=== PATIENT | male | born 1950 | race Caucasian/White ===

== ENCOUNTER 2020-06-26 01:18 | Inpatient (IN) ==
[2020-06-26] MEDS ORDERED: Acetaminophen 325 MG TABLET PO PRN ×2 (14:44→18:53)
[2020-06-26] MEDS ORDERED: Ondansetron 4 MG/2 ML VIAL IVP PRN ×2 (14:44→18:53)
[2020-06-26] MEDS ORDERED: Naloxone 0.4 MG/ML INJ IVP PRN ×2 (14:44→18:53)
[2020-06-26] MEDS ORDERED: *HR* HYDROcodone/Acet 5/325 mg TABLET PO PRN ×2 (14:44→18:53)
[2020-06-26] MEDS ORDERED: *HR* OxyCODONE Immed Rel 5 MG TABLET PO PRN ×2 (14:44→18:53)
[2020-06-26] MEDS ORDERED: Ringers Solution, Lactated 1,000 ML IVC SCH ×2 (14:45→15:15)
[2020-06-26] MEDS ORDERED: cefTRIAXone 1,000 MG in 0.9 % Sodium Chloride Mini Bag 100 ML IVPB SCH (15:00)
[2020-06-26] MEDS ORDERED: Ondansetron 4 MG/2 ML VIAL ONE (16:47)
[2020-06-26] MEDS ORDERED: Dexamethasone 4 MG/ML VIAL ONE (16:47)
[2020-06-26] MEDS ORDERED: Lidocaine -MPF 2% 2 ML VIAL ONE (16:47)
[2020-06-26] MEDS ORDERED: *HR* Propofol 200 MG/20 ML VIAL IVP ONE (16:48)
[2020-06-26] MEDS ORDERED: *HR* FentaNYL (PF) 100 MCG/2 ML VIAL ONE (16:48)
[2020-06-26] MEDS ORDERED: Isovue-300 50ML VIAL ONE (16:52)
[2020-06-26] MEDS ORDERED: Insulin LISPRO 300 UNITS/3 ML VIAL SQ SCH (17:00)
[2020-06-26] MEDS ORDERED: Albumin Human 5% 12.5 GM/250 ML IV.SOLN ONE (17:01)
[2020-06-26] MEDS ORDERED: Perflutren Lipid Microsphere 1.3 ML in 0.9 % Sodium Chloride 8.7 ML IVP PRN ×2 (17:27→18:53)
[2020-06-26] MEDS ORDERED: *HR* PHENYLEPHRINE 1,000 MCG/10 ML SYRINGE IVP ONE (17:29)
[2020-06-26] MEDS ORDERED: carvediloL 25 MG TABLET PO SCH (17:30)
[2020-06-26] MEDS ORDERED: *HR* Labetalol 20 MG/4 ML SYRINGE IVP PRN (18:21)
[2020-06-26] MEDS ORDERED: *HR* HYDROmorphone PF 0.5 MG/0.5 ML SYRINGE IVP PRN (18:21)
[2020-06-26] MEDS ORDERED: Apixaban 5 MG TABLET PO SCH (21:00)
[2020-06-26] MEDS ORDERED: hydrALAZINE 25 MG TABLET PO SCH (21:00)
[2020-06-26] MEDS: Apixaban 5 MG TABLET PO SCH (21:23)
[2020-06-26] MEDS: hydrALAZINE 25 MG TABLET PO SCH (21:23)
[2020-06-27 04:52] LABS: Basophils % 0.2 %
[2020-06-27 04:53] LABS: Hematocrit 28.8 % (37.5-50.1); Hemoglobin 7.9 g/dL (12.9-16.9); Immature Granulocytes % 0.9 % (0-4); Lymphocytes # 0.5 K/mcL (0.6-4.6); Lymphocytes % 5.6 %; Mean Corpuscular HGB Conc 27.4 g/dL (31.6-35.5); Mean Corpuscular Hemoglobin 21.3 pg (28.0-33.3); Mean Corpuscular Volume 77.6 fL (83.0-100.0); Mean Platelet Volume 11.4 fL (9.4-12.4); Monocytes # 0.5 K/mcL (0.0-1.3); Monocytes % 4.8 %; Platelet Count 335 K/mcL (140-400); Red Blood Count 3.71 M/mcL (4.19-5.50); Red Cell Distribution Width 15.6 % (11.5-14.5); Segmented Neutrophils % 88.5 %; White Blood Count 9.3 K/mcL (4.3-11.1)
[2020-06-27 05:09] LABS: Neutrophils # 8.2 K/mcL (1.6-8.9)
[2020-06-27 05:18] LABS: Calcium 8.7 mg/dL (8.6-10.3); Magnesium 2.6 mg/dL (1.6-2.6); Phosphorous 5.5 mg/dL (2.7-4.5); Potassium 5.7 mEq/L (3.5-5.1)
[2020-06-27 05:24] LABS: Thyroid Stimulating Hormone 0.868 mcIU/mL (0.340-5.600)
[2020-06-27 05:34] LABS: Vitamin B12 627 pg/mL (250-1100)
[2020-06-27 05:35] LABS: Folate > 22.3 ng/mL (3.0-16.0)
[2020-06-27 06:03] LABS: Hypochromasia Present (Not Present); Platelet Estimate Normal (Normal)
[2020-06-27 06:04] LABS: Ovalocytes 1+ (Not Present)
[2020-06-27] MEDS: Levothyroxine 25 MCG TABLET PO SCH (06:12)
[2020-06-27] MEDS ORDERED: Levothyroxine 25 MCG TABLET PO SCH (06:30)
[2020-06-27 06:45] LABS: Estimated Average Glucose 169 mg/dl; Hemoglobin A1C 7.5 %
[2020-06-27] MEDS: cefTRIAXone 1,000 MG in 0.9 % Sodium Chloride Mini Bag 100 ML IVPB SCH (07:57)
[2020-06-27] MEDS: Multivit/Ca/Min/Fe/FA 1 TAB TABLET PO SCH (07:58)
[2020-06-27] MEDS: carvediloL 25 MG TABLET PO SCH ×2 (07:58→17:40)
[2020-06-27] MEDS: DilTIAZem CD (24hr) 240 MG CAP.ER.24H PO SCH (07:58)
[2020-06-27] MEDS: hydrALAZINE 25 MG TABLET PO SCH ×3 (07:58→21:52)
[2020-06-27] MEDS: Cholecalciferol (D-3) 1,000 UNIT (25MCG) TABLET PO SCH (07:59)
[2020-06-27] MEDS: Apixaban 5 MG TABLET PO SCH ×2 (07:59→21:52)
[2020-06-27] MEDS ORDERED: Insulin LISPRO 300 UNITS/3 ML VIAL SQ SCH (08:00)
[2020-06-27] MEDS ORDERED: Furosemide 20 MG TABLET PO SCH (09:00)
[2020-06-27] MEDS ORDERED: DilTIAZem CD (24hr) 240 MG CAP.ER.24H PO SCH (09:00)
[2020-06-27] MEDS ORDERED: Ferrous Sulfate Oral Soln 300 MG/5 ML UDC PO SCH ×2 (09:00)
[2020-06-27] MEDS ORDERED: Cholecalciferol (D-3) 1,000 UNIT (25MCG) TABLET PO SCH (09:00)
[2020-06-27] MEDS ORDERED: Multivit/Ca/Min/Fe/FA 1 TAB TABLET PO SCH (09:00)
[2020-06-27] MEDS ORDERED: Insulin Human Regular 10 UNIT in 0.9 % Sodium Chloride 10 ML IV ONE (09:57)
[2020-06-27] MEDS: Sennosides/Docusate Sodium TABLET PO SCH ×2 (11:03→21:52)
[2020-06-27] MEDS: Insulin DETEMIR 100 UNIT/ML X5UNITS SQ SCH (11:03)
[2020-06-27] MEDS: Insulin LISPRO 300 UNITS/3 ML VIAL SQ SCH ×3 (12:29→21:51)
[2020-06-27 20:02] LABS: Sodium, Urine 38.9 mEq/L
[2020-06-28 01:40] LABS: Basophils % 0.4 %; Red Cell Distribution Width 15.5 % (11.5-14.5)
[2020-06-28 01:41] LABS: Eosinophils # 0.1 K/mcL (0.0-0.6); Eosinophils % 1.1 %; Hematocrit 26.6 % (37.5-50.1); Hemoglobin 7.5 g/dL (12.9-16.9); Immature Granulocytes % 0.4 % (0-4); Lymphocytes # 1.1 K/mcL (0.6-4.6); Lymphocytes % 9.7 %; Mean Corpuscular HGB Conc 28.2 g/dL (31.6-35.5); Mean Corpuscular Hemoglobin 21.6 pg (28.0-33.3); Mean Corpuscular Volume 76.4 fL (83.0-100.0); Mean Platelet Volume 11.2 fL (9.4-12.4); Monocytes % 8.3 %; Neutrophils # 9.1 K/mcL (1.6-8.9); Platelet Count 331 K/mcL (140-400); Red Blood Count 3.48 M/mcL (4.19-5.50); Segmented Neutrophils % 80.1 %; White Blood Count 11.4 K/mcL (4.3-11.1)
[2020-06-28 01:54] LABS: Basophils # 0.1 K/mcL (0.0-0.2)
[2020-06-28 01:59] LABS: Calcium 8.9 mg/dL (8.6-10.3); Magnesium 2.7 mg/dL (1.6-2.6); Phosphorous 5.1 mg/dL (2.7-4.5); Potassium 4.9 mEq/L (3.5-5.1)
[2020-06-28 02:32] LABS: Hypochromasia Present (Not Present); Platelet Estimate Normal (Normal); Poikilocytosis 1+ (Not Present)
[2020-06-28] MEDS: polyethylene glycoL 3350 17 GM POWD.PACK PO PRN (04:38)
[2020-06-28] MEDS: Levothyroxine 25 MCG TABLET PO SCH (06:00)
[2020-06-28] MEDS: Insulin LISPRO 300 UNITS/3 ML VIAL SQ SCH ×4 (07:54→19:41)
[2020-06-28] MEDS ORDERED: Iron Sucrose Complex 400 MG in 0.9 % Sodium Chloride 250 ML IVPB ONE (08:52)
[2020-06-28] MEDS: hydrALAZINE 25 MG TABLET PO SCH ×3 (09:34→19:40)
[2020-06-28] MEDS: Apixaban 5 MG TABLET PO SCH (09:34)
[2020-06-28] MEDS: DilTIAZem CD (24hr) 240 MG CAP.ER.24H PO SCH (09:34)
[2020-06-28] MEDS: Multivit/Ca/Min/Fe/FA 1 TAB TABLET PO SCH (09:34)
[2020-06-28] MEDS: Sennosides/Docusate Sodium TABLET PO SCH ×2 (09:35→19:40)
[2020-06-28] MEDS: carvediloL 25 MG TABLET PO SCH ×2 (09:35→16:29)
[2020-06-28] MEDS: Cholecalciferol (D-3) 1,000 UNIT (25MCG) TABLET PO SCH (09:35)
[2020-06-28] MEDS: cefTRIAXone 1,000 MG in 0.9 % Sodium Chloride Mini Bag 100 ML IVPB SCH (09:38)
[2020-06-28] MEDS: Insulin DETEMIR 100 UNIT/ML X5UNITS SQ SCH (10:36)
[2020-06-29] MEDS: Levothyroxine 25 MCG TABLET PO SCH (05:30)
[2020-06-29 06:03] LABS: Basophils # 0.1 K/mcL (0.0-0.2); Basophils % 0.6 %; Eosinophils # 0.2 K/mcL (0.0-0.6); Eosinophils % 2.5 %; Hematocrit 25.6 % (37.5-50.1); Hemoglobin 7.5 g/dL (12.9-16.9); Immature Granulocytes % 0.8 % (0-4); Lymphocytes # 1.2 K/mcL (0.6-4.6); Lymphocytes % 12.6 %; Mean Corpuscular HGB Conc 29.3 g/dL (31.6-35.5); Mean Corpuscular Hemoglobin 22.3 pg (28.0-33.3); Mean Corpuscular Volume 76.2 fL (83.0-100.0); Mean Platelet Volume 10.8 fL (9.4-12.4); Monocytes # 0.9 K/mcL (0.0-1.3); Neutrophils # 7.2 K/mcL (1.6-8.9); Platelet Count 332 K/mcL (140-400); Red Blood Count 3.36 M/mcL (4.19-5.50); Red Cell Distribution Width 15.4 % (11.5-14.5); Segmented Neutrophils % 74.5 %; White Blood Count 9.7 K/mcL (4.3-11.1)
[2020-06-29 06:23] LABS: Calcium 8.8 mg/dL (8.6-10.3); Magnesium 2.5 mg/dL (1.6-2.6); Potassium 4.6 mEq/L (3.5-5.1)
[2020-06-29] MEDS: polyethylene glycoL 3350 17 GM POWD.PACK PO PRN (08:19)
[2020-06-29] MEDS: Insulin LISPRO 300 UNITS/3 ML VIAL SQ SCH ×4 (08:19→20:59)
[2020-06-29] MEDS: cefTRIAXone 1,000 MG in 0.9 % Sodium Chloride Mini Bag 100 ML IVPB SCH (08:20)
[2020-06-29] MEDS: DilTIAZem CD (24hr) 240 MG CAP.ER.24H PO SCH (08:21)
[2020-06-29] MEDS: carvediloL 25 MG TABLET PO SCH ×2 (08:21→17:04)
[2020-06-29] MEDS: hydrALAZINE 25 MG TABLET PO SCH ×3 (08:22→20:58)
[2020-06-29] MEDS: Sennosides/Docusate Sodium TABLET PO SCH ×2 (08:22→20:59)
[2020-06-29] MEDS: Multivit/Ca/Min/Fe/FA 1 TAB TABLET PO SCH (08:22)
[2020-06-29] MEDS: Cholecalciferol (D-3) 1,000 UNIT (25MCG) TABLET PO SCH (08:22)
[2020-06-29] MEDS: Insulin DETEMIR 100 UNIT/ML X5UNITS SQ SCH (08:35)
[2020-06-29] MEDS ORDERED: Iron Sucrose Complex 400 MG in 0.9 % Sodium Chloride 250 ML IVPB ONE (12:36)
[2020-06-30 04:21] LABS: Hematocrit 26.4 % (37.5-50.1); Hemoglobin 7.7 g/dL (12.9-16.9); Mean Corpuscular HGB Conc 29.2 g/dL (31.6-35.5); Mean Corpuscular Hemoglobin 22.2 pg (28.0-33.3); Mean Corpuscular Volume 76.1 fL (83.0-100.0); Mean Platelet Volume 10.9 fL (9.4-12.4); Platelet Count 338 K/mcL (140-400); Red Blood Count 3.47 M/mcL (4.19-5.50); Red Cell Distribution Width 15.7 % (11.5-14.5); White Blood Count 9.2 K/mcL (4.3-11.1)
[2020-06-30 04:33] LABS: Calcium 8.9 mg/dL (8.6-10.3); Potassium 4.2 mEq/L (3.5-5.1)
[2020-06-30] MEDS: Levothyroxine 25 MCG TABLET PO SCH (05:34)
[2020-06-30] MEDS: Insulin DETEMIR 100 UNIT/ML X5UNITS SQ SCH (08:14)
[2020-06-30] MEDS: Insulin LISPRO 300 UNITS/3 ML VIAL SQ SCH ×2 (08:14→11:55)
[2020-06-30] MEDS: Cholecalciferol (D-3) 1,000 UNIT (25MCG) TABLET PO SCH (08:15)
[2020-06-30] MEDS: hydrALAZINE 25 MG TABLET PO SCH (08:15)
[2020-06-30] MEDS: DilTIAZem CD (24hr) 240 MG CAP.ER.24H PO SCH (08:15)
[2020-06-30] MEDS: Multivit/Ca/Min/Fe/FA 1 TAB TABLET PO SCH (08:15)
[2020-06-30] MEDS: Sennosides/Docusate Sodium TABLET PO SCH (08:15)
[2020-06-30] MEDS: carvediloL 25 MG TABLET PO SCH (08:15)
[2020-06-30 11:45] VITALS: BP 133/78
[2020-07-02 11:36] LABS: Calculi Mass 10 mg
== END 2020-06-30 13:39 | disposition home or self-care (01) | DRG 659 ==
LOC: 3BNU → SUATTDRO 12:46 → 2ANU 06-28 22:50
PROVIDERS: ADMIT Family Medicine; ATTEND Internal Medicine

== ENCOUNTER 2022-06-15 16:17 | Inpatient (IN) ==
[2022-06-15 18:24] LABS: Basophils # 0.1 K/mcL (0.0-0.2); Basophils % 0.6 %; Eosinophils # 0.5 K/mcL (0.0-0.6); Eosinophils % 3.9 %; Hematocrit 36.6 % (37.5-50.1); Hemoglobin 11.4 g/dL (12.9-16.9); Immature Granulocytes % 0.4 % (0-4); Lymphocytes # 1.3 K/mcL (0.6-4.6); Lymphocytes % 10.7 %; Mean Corpuscular HGB Conc 31.1 g/dL (31.6-35.5); Mean Corpuscular Hemoglobin 27.9 pg (28.0-33.3); Mean Corpuscular Volume 89.7 fL (83.0-100.0); Mean Platelet Volume 10.6 fL (9.4-12.4); Monocytes # 0.7 K/mcL (0.0-1.3); Monocytes % 5.8 %; Neutrophils # 9.8 K/mcL (1.6-8.9); Platelet Count 280 K/mcL (140-400); Red Blood Count 4.08 M/mcL (4.19-5.50); Red Cell Distribution Width 14.5 % (11.5-14.5); Segmented Neutrophils % 78.6 %; White Blood Count 12.4 K/mcL (4.3-11.1)
[2022-06-15 18:46] LABS: Calcium 9.3 mg/dL (8.6-10.3); Potassium 3.6 mEq/L (3.5-5.1)
[2022-06-15 18:47] LABS: Troponin I 0.03 ng/mL (< 0.04)
[2022-06-16] MEDS ORDERED: carvediloL 25 MG TABLET PO ONE (00:45)
[2022-06-16] MEDS ORDERED: hydrALAZINE 25 MG TABLET PO ONE (00:45)
[2022-06-16] MEDS ORDERED: Furosemide 40 MG/4 ML VIAL IVP ONE (01:03)
[2022-06-16] MEDS ORDERED: Melatonin 3 MG TABLET PO PRN (01:53)
[2022-06-16] MEDS ORDERED: Dextrose Gel 15 GM/37.5 ML TUBE PO PRN ×2 (01:53)
[2022-06-16] MEDS ORDERED: D5% in Water 1,000 ML IVC PRN (01:53)
[2022-06-16] MEDS ORDERED: Ondansetron ODT 4 MG TAB.RAPDIS SL PRN (01:53)
[2022-06-16] MEDS ORDERED: *HR* Dextrose 50 % in Water (Syg) 50 ML SYRINGE IVP PRN (01:53)
[2022-06-16] MEDS ORDERED: Naloxone 0.4 MG/ML INJ IVP PRN (01:53)
[2022-06-16 03:07] LABS: Bacteria,Urine Few per hpf (None-Few); Bilirubin,Urine Negative (Negative); Blood,Urine Small (Negative); Clarity,Urine Clear (Clear); Color,Urine Light-Yellow (Yellow); Glucose,Urine (UA) 100 mg/dL (Normal); Ketones,Urine Negative (Negative); Leukocyte Esterase,Urine Negative (Negative); Nitrite,Urine Negative (Negative); PH,Urine 6.5 pH Units (5.0-8.0); Protein,Urine >=300 mg/dL (Neg-Trace); Specific Gravity,Urine 1.011 (1.010-1.025); Squamous Epithelial Cell,Urine Few per hpf (None-Few); Urobilinogen,Urine Normal (Normal); WBC,Urine 0-3 per hpf (0-3)
[2022-06-16 03:15] LABS: Sodium, Urine 107.3 mEq/L
[2022-06-16 06:00] LABS: Basophils # 0.1 K/mcL (0.0-0.2); Basophils % 0.4 %; Eosinophils # 0.4 K/mcL (0.0-0.6); Eosinophils % 3.2 %; Hematocrit 35.1 % (37.5-50.1); Hemoglobin 11.1 g/dL (12.9-16.9); Immature Granulocytes % 0.4 % (0-4); Lymphocytes # 1.2 K/mcL (0.6-4.6); Lymphocytes % 8.9 %; Mean Corpuscular HGB Conc 31.6 g/dL (31.6-35.5); Mean Corpuscular Hemoglobin 27.9 pg (28.0-33.3); Mean Corpuscular Volume 88.2 fL (83.0-100.0); Mean Platelet Volume 10.7 fL (9.4-12.4); Monocytes # 0.8 K/mcL (0.0-1.3); Monocytes % 6.1 %; Neutrophils # 10.9 K/mcL (1.6-8.9); Platelet Count 267 K/mcL (140-400); Red Blood Count 3.98 M/mcL (4.19-5.50); Red Cell Distribution Width 14.5 % (11.5-14.5); White Blood Count 13.4 K/mcL (4.3-11.1)
[2022-06-16 06:23] LABS: Calcium 9.3 mg/dL (8.6-10.3); Chol/HDL Ratio 2.8 (0-4.9); Magnesium 1.8 mg/dL (1.6-2.6); Potassium 3.4 mEq/L (3.5-5.1)
[2022-06-16] MEDS ORDERED: Potassium Chloride Elixir 20 MEQ/15 ML UDC PO ONE (06:27)
[2022-06-16] MEDS ORDERED: carvediloL 25 MG TABLET PO SCH (08:00)
[2022-06-16] MEDS ORDERED: hydrALAZINE 25 MG TABLET PO SCH (09:00)
[2022-06-16] MEDS: hydrALAZINE 25 MG TABLET PO SCH ×3 (09:28→20:48)
[2022-06-16] MEDS: carvediloL 25 MG TABLET PO SCH ×2 (09:29→18:00)
[2022-06-16] MEDS: DilTIAZem CD (24hr) 240 MG CAP.ER.24H PO SCH (09:29)
[2022-06-16] MEDS: Apixaban 5 MG TABLET PO SCH ×2 (09:29→20:48)
[2022-06-16] MEDS: Insulin LISPRO 300 UNITS/3 ML VIAL SUBQ SCH ×4 (09:31→20:50)
[2022-06-16] MEDS: Insulin DETEMIR 100 UNIT/ML X5UNITS SUBQ SCH ×2 (09:31→20:48)
[2022-06-16 09:33] LABS: Phosphorous 3.9 mg/dL (2.7-4.5)
[2022-06-16 09:46] LABS: Thyroid Stimulating Hormone 3.175 mcIU/mL (0.340-5.600)
[2022-06-16 10:13] LABS: Folate > 22.3 ng/mL (3.0-16.0); Vitamin B12 1125 pg/mL (250-1100); Vitamin D 25 Hydroxy 25 ng/mL (30-80)
[2022-06-16 10:58] LABS: Estimated Average Glucose 183 mg/dl
[2022-06-16] MEDS ORDERED: GuaiFENesin Liq 200 MG/10 ML UDC PO PRN (14:46)
[2022-06-16] MEDS ORDERED: Furosemide 40 MG/4 ML VIAL IVP SCH (15:00)
[2022-06-16] MEDS ORDERED: polyethylene glycoL 3350 17 GM POWD.PACK PO PRN (15:06)
[2022-06-16 15:12] LABS: Hepatitis B Surface Antigen Nonreactive (Nonreactive)
[2022-06-16 15:42] LABS: Hepatitis C Virus Antibody Nonreactive (Nonreactive)
[2022-06-16 15:45] LABS: Hepatitis B Core IgM Nonreactive (Nonreactive)
[2022-06-16 15:48] LABS: Hepatitis A Antibody IgM Nonreactive (Nonreactive)
[2022-06-16 18:44] LABS: Creatinine,Urine 134 mg/dL; Microalbumin,Urine > 1350 mg/L; Protein/Creatinine Ratio,Urine 6.44 mg/mg (0.00-0.20)
[2022-06-16] MEDS: Furosemide 40 MG TABLET PO SCH (20:48)
[2022-06-16] MEDS: Sennosides/Docusate Sodium TABLET PO SCH (20:48)
[2022-06-16] MEDS ORDERED: Apixaban 5 MG TABLET PO SCH (21:00)
[2022-06-17 02:27] LABS: Hematocrit 34.4 % (37.5-50.1); Hemoglobin 10.8 g/dL (12.9-16.9); Mean Corpuscular HGB Conc 31.4 g/dL (31.6-35.5); Mean Corpuscular Hemoglobin 27.8 pg (28.0-33.3); Mean Corpuscular Volume 88.7 fL (83.0-100.0); Mean Platelet Volume 10.6 fL (9.4-12.4); Platelet Count 251 K/mcL (140-400); Red Blood Count 3.88 M/mcL (4.19-5.50); Red Cell Distribution Width 14.6 % (11.5-14.5); White Blood Count 10.6 K/mcL (4.3-11.1)
[2022-06-17 02:43] LABS: Calcium 8.9 mg/dL (8.6-10.3); Potassium 3.7 mEq/L (3.5-5.1)
[2022-06-17] MEDS: Levothyroxine 25 MCG TABLET PO SCH (06:27)
[2022-06-17] MEDS: Cholecalciferol (D-3) 1,000 UNIT (25MCG) TABLET PO SCH (07:56)
[2022-06-17] MEDS: Apixaban 5 MG TABLET PO SCH ×2 (07:56→19:28)
[2022-06-17] MEDS: allopurinoL 100 MG TABLET PO SCH (07:56)
[2022-06-17] MEDS: carvediloL 25 MG TABLET PO SCH ×2 (07:56→15:49)
[2022-06-17] MEDS: DilTIAZem CD (24hr) 240 MG CAP.ER.24H PO SCH (07:56)
[2022-06-17] MEDS: Furosemide 40 MG TABLET PO SCH ×2 (07:56→19:28)
[2022-06-17] MEDS: hydrALAZINE 25 MG TABLET PO SCH ×3 (07:56→19:27)
[2022-06-17] MEDS: Sennosides/Docusate Sodium TABLET PO SCH ×2 (07:56→19:28)
[2022-06-17] MEDS: Insulin DETEMIR 100 UNIT/ML X5UNITS SUBQ SCH ×2 (08:00→19:27)
[2022-06-17] MEDS: Insulin LISPRO 300 UNITS/3 ML VIAL SUBQ SCH ×4 (11:04→19:39)
[2022-06-18 03:34] LABS: Hemoglobin 10.1 g/dL (12.9-16.9); Mean Corpuscular HGB Conc 31.6 g/dL (31.6-35.5); Mean Corpuscular Volume 88.6 fL (83.0-100.0); Mean Platelet Volume 11.1 fL (9.4-12.4); Platelet Count 256 K/mcL (140-400); Red Blood Count 3.61 M/mcL (4.19-5.50); Red Cell Distribution Width 14.5 % (11.5-14.5); White Blood Count 10.5 K/mcL (4.3-11.1)
[2022-06-18 04:09] LABS: Calcium 8.5 mg/dL (8.6-10.3); Potassium 3.5 mEq/L (3.5-5.1)
[2022-06-18] MEDS: Levothyroxine 25 MCG TABLET PO SCH (05:58)
[2022-06-18] MEDS: Insulin LISPRO 300 UNITS/3 ML VIAL SUBQ SCH ×4 (08:24→20:31)
[2022-06-18] MEDS: Apixaban 5 MG TABLET PO SCH ×2 (09:44→20:30)
[2022-06-18] MEDS: allopurinoL 100 MG TABLET PO SCH (09:44)
[2022-06-18] MEDS: hydrALAZINE 25 MG TABLET PO SCH ×3 (09:44→20:30)
[2022-06-18] MEDS: DilTIAZem CD (24hr) 240 MG CAP.ER.24H PO SCH (09:44)
[2022-06-18] MEDS: Sennosides/Docusate Sodium TABLET PO SCH ×2 (09:44→20:31)
[2022-06-18] MEDS: carvediloL 25 MG TABLET PO SCH ×2 (09:44→16:25)
[2022-06-18] MEDS: Furosemide 40 MG TABLET PO SCH ×2 (09:44→20:31)
[2022-06-18] MEDS: Cholecalciferol (D-3) 1,000 UNIT (25MCG) TABLET PO SCH (09:44)
[2022-06-18] MEDS: Insulin DETEMIR 100 UNIT/ML X5UNITS SUBQ SCH ×2 (09:47→20:31)
[2022-06-19 05:07] LABS: Basophils # 0.1 K/mcL (0.0-0.2); Basophils % 0.6 %; Eosinophils # 0.3 K/mcL (0.0-0.6); Eosinophils % 2.3 %; Hematocrit 31.1 % (37.5-50.1); Hemoglobin 9.9 g/dL (12.9-16.9); Immature Granulocytes % 0.4 % (0-4); Lymphocytes # 1.7 K/mcL (0.6-4.6); Lymphocytes % 15.6 %; Mean Corpuscular HGB Conc 31.8 g/dL (31.6-35.5); Mean Corpuscular Hemoglobin 28.4 pg (28.0-33.3); Mean Corpuscular Volume 89.1 fL (83.0-100.0); Mean Platelet Volume 10.7 fL (9.4-12.4); Monocytes % 8.9 %; Neutrophils # 7.8 K/mcL (1.6-8.9); Platelet Count 235 K/mcL (140-400); Red Blood Count 3.49 M/mcL (4.19-5.50); Red Cell Distribution Width 14.6 % (11.5-14.5); Segmented Neutrophils % 72.2 %; White Blood Count 10.8 K/mcL (4.3-11.1)
[2022-06-19 05:33] LABS: Calcium 8.6 mg/dL (8.6-10.3); Phosphorous 5.5 mg/dL (2.7-4.5); Potassium 3.5 mEq/L (3.5-5.1)
[2022-06-19] MEDS: Levothyroxine 25 MCG TABLET PO SCH (06:13)
[2022-06-19] MEDS: Insulin LISPRO 300 UNITS/3 ML VIAL SUBQ SCH ×4 (07:36→20:43)
[2022-06-19] MEDS: Furosemide 40 MG TABLET PO SCH ×2 (08:44→20:36)
[2022-06-19] MEDS: carvediloL 25 MG TABLET PO SCH ×2 (08:44→15:17)
[2022-06-19] MEDS: allopurinoL 100 MG TABLET PO SCH (08:44)
[2022-06-19] MEDS: Sennosides/Docusate Sodium TABLET PO SCH ×2 (08:44→20:37)
[2022-06-19] MEDS: hydrALAZINE 25 MG TABLET PO SCH ×3 (08:44→20:36)
[2022-06-19] MEDS: Cholecalciferol (D-3) 1,000 UNIT (25MCG) TABLET PO SCH (08:44)
[2022-06-19] MEDS: Apixaban 5 MG TABLET PO SCH ×2 (08:45→20:37)
[2022-06-19] MEDS: DilTIAZem CD (24hr) 240 MG CAP.ER.24H PO SCH (08:45)
[2022-06-19] MEDS: Insulin DETEMIR 100 UNIT/ML X5UNITS SUBQ SCH ×2 (09:31→20:42)
[2022-06-19] MEDS ORDERED: Benzonatate 100 MG CAPSULE PO PRN (15:03)
[2022-06-20] MEDS: Levothyroxine 25 MCG TABLET PO SCH (05:46)
[2022-06-20] MEDS: Insulin LISPRO 300 UNITS/3 ML VIAL SUBQ SCH ×4 (07:49→20:54)
[2022-06-20] MEDS: hydrALAZINE 25 MG TABLET PO SCH ×3 (07:56→21:07)
[2022-06-20] MEDS: Furosemide 40 MG TABLET PO SCH ×2 (07:57→20:54)
[2022-06-20] MEDS: Cholecalciferol (D-3) 1,000 UNIT (25MCG) TABLET PO SCH (07:57)
[2022-06-20] MEDS: allopurinoL 100 MG TABLET PO SCH (07:57)
[2022-06-20] MEDS: Apixaban 5 MG TABLET PO SCH (07:57)
[2022-06-20] MEDS: Sennosides/Docusate Sodium TABLET PO SCH ×2 (07:57→20:54)
[2022-06-20] MEDS: DilTIAZem CD (24hr) 240 MG CAP.ER.24H PO SCH (07:57)
[2022-06-20] MEDS: carvediloL 25 MG TABLET PO SCH ×2 (07:57→17:40)
[2022-06-20] MEDS: Insulin DETEMIR 100 UNIT/ML X5UNITS SUBQ SCH ×2 (08:06→20:54)
[2022-06-20 10:34] LABS: Calcium 8.6 mg/dL (8.6-10.3); Magnesium 1.9 mg/dL (1.6-2.6); Phosphorous 5.6 mg/dL (2.7-4.5); Potassium 3.4 mEq/L (3.5-5.1)
[2022-06-20] MEDS ORDERED: Heparin 1,000 UNITS/500 mL 500 ML ONE (13:56)
[2022-06-20] MEDS ORDERED: *HR* Heparin 5,000 UNIT/ML VIAL ONE (14:19)
[2022-06-21] MEDS: Levothyroxine 25 MCG TABLET PO SCH (05:58)
[2022-06-21 07:45] LABS: Basophils % 0.4 %; Eosinophils # 0.2 K/mcL (0.0-0.6); Eosinophils % 2.1 %; Hematocrit 31.7 % (37.5-50.1); Immature Granulocytes % 0.3 % (0-4); Lymphocytes # 1.4 K/mcL (0.6-4.6); Mean Corpuscular HGB Conc 31.5 g/dL (31.6-35.5); Mean Corpuscular Hemoglobin 28.1 pg (28.0-33.3); Mean Platelet Volume 11.2 fL (9.4-12.4); Monocytes # 0.8 K/mcL (0.0-1.3); Monocytes % 8.6 %; Neutrophils # 6.8 K/mcL (1.6-8.9); Platelet Count 223 K/mcL (140-400); Red Blood Count 3.56 M/mcL (4.19-5.50); Red Cell Distribution Width 14.8 % (11.5-14.5); Segmented Neutrophils % 73.6 %; White Blood Count 9.3 K/mcL (4.3-11.1)
[2022-06-21 08:08] LABS: Calcium 8.8 mg/dL (8.6-10.3); Potassium 3.3 mEq/L (3.5-5.1)
[2022-06-21] MEDS: Insulin LISPRO 300 UNITS/3 ML VIAL SUBQ SCH ×4 (08:20→20:01)
[2022-06-21] MEDS ORDERED: 0.9 % Sodium Chloride 250 ML IVC PRN (08:31)
[2022-06-21] MEDS ORDERED: *HR* Heparin 10,000 UNIT/10 ML VIAL IV PRN ×2 (08:37)
[2022-06-21] MEDS: hydrALAZINE 25 MG TABLET PO SCH ×3 (08:43→20:34)
[2022-06-21] MEDS: carvediloL 25 MG TABLET PO SCH ×2 (08:43→16:05)
[2022-06-21] MEDS: Sennosides/Docusate Sodium TABLET PO SCH ×2 (08:43→20:35)
[2022-06-21] MEDS: Furosemide 40 MG TABLET PO SCH ×2 (08:43→20:35)
[2022-06-21] MEDS: Cholecalciferol (D-3) 1,000 UNIT (25MCG) TABLET PO SCH (08:44)
[2022-06-21] MEDS: allopurinoL 100 MG TABLET PO SCH (08:44)
[2022-06-21] MEDS: DilTIAZem CD (24hr) 240 MG CAP.ER.24H PO SCH (08:44)
[2022-06-21] MEDS ORDERED: 0.9 % Sodium Chloride 2,000 ML PRIME SCH (08:45)
[2022-06-21] MEDS: Insulin DETEMIR 100 UNIT/ML X5UNITS SUBQ SCH ×2 (08:46→20:35)
[2022-06-21] MEDS: *HR* Heparin 5,000 UNIT/ML VIAL SQ SCH (16:35)
[2022-06-22] MEDS: *HR* Heparin 5,000 UNIT/ML VIAL SQ SCH ×2 (05:23→17:10)
[2022-06-22] MEDS: Levothyroxine 25 MCG TABLET PO SCH (05:24)
[2022-06-22] MEDS: Insulin LISPRO 300 UNITS/3 ML VIAL SUBQ SCH ×4 (08:32→21:21)
[2022-06-22] MEDS: carvediloL 25 MG TABLET PO SCH ×2 (08:33→17:10)
[2022-06-22] MEDS: allopurinoL 100 MG TABLET PO SCH (08:33)
[2022-06-22] MEDS: Sennosides/Docusate Sodium TABLET PO SCH ×2 (08:34→21:22)
[2022-06-22] MEDS: hydrALAZINE 25 MG TABLET PO SCH ×3 (08:34→21:22)
[2022-06-22] MEDS: DilTIAZem CD (24hr) 240 MG CAP.ER.24H PO SCH (08:34)
[2022-06-22] MEDS: Cholecalciferol (D-3) 1,000 UNIT (25MCG) TABLET PO SCH (08:34)
[2022-06-22] MEDS: Furosemide 40 MG TABLET PO SCH ×2 (08:34→21:22)
[2022-06-22] MEDS ORDERED: *HR* Heparin 10,000 UNIT/10 ML VIAL IV PRN (08:51)
[2022-06-22] MEDS ORDERED: 0.9 % Sodium Chloride 250 ML IVC PRN (08:51)
[2022-06-22] MEDS: Insulin DETEMIR 100 UNIT/ML X5UNITS SUBQ SCH ×2 (08:58→21:22)
[2022-06-23 05:11] LABS: Basophils # 0.1 K/mcL (0.0-0.2); Basophils % 0.9 %; Eosinophils # 0.2 K/mcL (0.0-0.6); Eosinophils % 2.4 %; Hematocrit 35.2 % (37.5-50.1); Hemoglobin 10.9 g/dL (12.9-16.9); Immature Granulocytes % 0.4 % (0-4); Lymphocytes # 1.8 K/mcL (0.6-4.6); Mean Corpuscular Hemoglobin 27.9 pg (28.0-33.3); Mean Platelet Volume 11.2 fL (9.4-12.4); Monocytes # 1.1 K/mcL (0.0-1.3); Monocytes % 11.2 %; Neutrophils # 6.4 K/mcL (1.6-8.9); Platelet Count 206 K/mcL (140-400); Red Blood Count 3.91 M/mcL (4.19-5.50); Red Cell Distribution Width 14.6 % (11.5-14.5); Segmented Neutrophils % 66.1 %; White Blood Count 9.7 K/mcL (4.3-11.1)
[2022-06-23 05:30] LABS: Calcium 8.8 mg/dL (8.6-10.3); Magnesium 1.9 mg/dL (1.6-2.6); Phosphorous 4.1 mg/dL (2.7-4.5); Potassium 3.5 mEq/L (3.5-5.1)
[2022-06-23] MEDS: *HR* Heparin 5,000 UNIT/ML VIAL SQ SCH ×2 (05:45→18:12)
[2022-06-23] MEDS: Levothyroxine 25 MCG TABLET PO SCH (05:45)
[2022-06-23] MEDS ORDERED: 0.9 % Sodium Chloride 250 ML IVC PRN (07:50)
[2022-06-23] MEDS ORDERED: *HR* Heparin 10,000 UNIT/10 ML VIAL IV PRN (07:50)
[2022-06-23] MEDS: Cholecalciferol (D-3) 1,000 UNIT (25MCG) TABLET PO SCH (08:17)
[2022-06-23] MEDS: Furosemide 40 MG TABLET PO SCH ×2 (08:17→22:00)
[2022-06-23] MEDS: allopurinoL 100 MG TABLET PO SCH (08:17)
[2022-06-23] MEDS: DilTIAZem CD (24hr) 240 MG CAP.ER.24H PO SCH (08:17)
[2022-06-23] MEDS: Sennosides/Docusate Sodium TABLET PO SCH ×2 (08:17→22:00)
[2022-06-23] MEDS: Insulin LISPRO 300 UNITS/3 ML VIAL SUBQ SCH ×4 (08:24→22:08)
[2022-06-23] MEDS: carvediloL 25 MG TABLET PO SCH ×2 (09:05→16:19)
[2022-06-23] MEDS: hydrALAZINE 25 MG TABLET PO SCH ×3 (09:05→22:06)
[2022-06-23] MEDS: Insulin DETEMIR 100 UNIT/ML X5UNITS SUBQ SCH ×2 (09:06→22:09)
[2022-06-24 03:56] LABS: Potassium 3.3 mEq/L (3.5-5.1)
[2022-06-24] MEDS: *HR* Heparin 5,000 UNIT/ML VIAL SQ SCH ×2 (05:10→17:39)
[2022-06-24] MEDS: Levothyroxine 25 MCG TABLET PO SCH (05:11)
[2022-06-24] MEDS: Insulin LISPRO 300 UNITS/3 ML VIAL SUBQ SCH ×4 (09:37→21:12)
[2022-06-24] MEDS: Cholecalciferol (D-3) 1,000 UNIT (25MCG) TABLET PO SCH (09:38)
[2022-06-24] MEDS: DilTIAZem CD (24hr) 240 MG CAP.ER.24H PO SCH (09:38)
[2022-06-24] MEDS: allopurinoL 100 MG TABLET PO SCH (09:38)
[2022-06-24] MEDS: carvediloL 25 MG TABLET PO SCH ×2 (09:38→17:39)
[2022-06-24] MEDS: Furosemide 40 MG TABLET PO SCH ×2 (09:38→21:19)
[2022-06-24] MEDS: hydrALAZINE 25 MG TABLET PO SCH ×3 (09:38→21:19)
[2022-06-24] MEDS: Sennosides/Docusate Sodium TABLET PO SCH ×2 (09:39→21:19)
[2022-06-24] MEDS: Insulin DETEMIR 100 UNIT/ML X5UNITS SUBQ SCH ×2 (09:40→21:18)
[2022-06-24 15:43] LABS: Urine Collection Volume NOT PROVIDED mL
[2022-06-25 02:00] LABS: Mean Corpuscular HGB Conc 31.4 g/dL (31.6-35.5); Mean Corpuscular Hemoglobin 27.6 pg (28.0-33.3); Mean Corpuscular Volume 87.9 fL (83.0-100.0); Mean Platelet Volume 11.8 fL (9.4-12.4); Platelet Count 186 K/mcL (140-400); Red Blood Count 3.98 M/mcL (4.19-5.50); Red Cell Distribution Width 14.4 % (11.5-14.5); White Blood Count 11.7 K/mcL (4.3-11.1)
[2022-06-25 02:20] LABS: Magnesium 1.8 mg/dL (1.6-2.6); Phosphorous 4.5 mg/dL (2.7-4.5)
[2022-06-25 02:21] LABS: Calcium 9.1 mg/dL (8.6-10.3); Potassium 3.4 mEq/L (3.5-5.1)
[2022-06-25] MEDS: Levothyroxine 25 MCG TABLET PO SCH (05:34)
[2022-06-25] MEDS: *HR* Heparin 5,000 UNIT/ML VIAL SQ SCH ×2 (05:35→18:28)
[2022-06-25] MEDS ORDERED: 0.9 % Sodium Chloride 250 ML IVC PRN (06:56)
[2022-06-25] MEDS ORDERED: 0.9 % Sodium Chloride 2,000 ML PRIME SCH (07:00)
[2022-06-25] MEDS: Insulin LISPRO 300 UNITS/3 ML VIAL SUBQ SCH ×4 (08:42→20:37)
[2022-06-25] MEDS: Cholecalciferol (D-3) 1,000 UNIT (25MCG) TABLET PO SCH (15:09)
[2022-06-25] MEDS: hydrALAZINE 25 MG TABLET PO SCH ×3 (15:09→20:23)
[2022-06-25] MEDS: DilTIAZem CD (24hr) 240 MG CAP.ER.24H PO SCH (15:09)
[2022-06-25] MEDS: allopurinoL 100 MG TABLET PO SCH (15:09)
[2022-06-25] MEDS: carvediloL 25 MG TABLET PO SCH ×2 (15:10→17:35)
[2022-06-25] MEDS: Furosemide 40 MG TABLET PO SCH ×2 (15:10→20:23)
[2022-06-25] MEDS: Sennosides/Docusate Sodium TABLET PO SCH ×2 (15:10→20:22)
[2022-06-25] MEDS: Insulin DETEMIR 100 UNIT/ML X5UNITS SUBQ SCH ×2 (15:21→20:37)
[2022-06-25] MEDS: Acetaminophen 325 MG TABLET PO PRN (18:31)
[2022-06-26] MEDS: Levothyroxine 25 MCG TABLET PO SCH (06:05)
[2022-06-26] MEDS: *HR* Heparin 5,000 UNIT/ML VIAL SQ SCH (06:05)
[2022-06-26] MEDS: Insulin LISPRO 300 UNITS/3 ML VIAL SUBQ SCH ×4 (09:00→22:07)
[2022-06-26] MEDS: allopurinoL 100 MG TABLET PO SCH (09:06)
[2022-06-26] MEDS: Furosemide 40 MG TABLET PO SCH ×2 (09:06→22:08)
[2022-06-26] MEDS: hydrALAZINE 25 MG TABLET PO SCH ×3 (09:06→22:07)
[2022-06-26] MEDS: DilTIAZem CD (24hr) 240 MG CAP.ER.24H PO SCH (09:06)
[2022-06-26] MEDS: Cholecalciferol (D-3) 1,000 UNIT (25MCG) TABLET PO SCH (09:06)
[2022-06-26] MEDS: carvediloL 25 MG TABLET PO SCH ×2 (09:06→16:53)
[2022-06-26] MEDS: Sennosides/Docusate Sodium TABLET PO SCH ×2 (09:07→22:08)
[2022-06-26] MEDS: Insulin DETEMIR 100 UNIT/ML X5UNITS SUBQ SCH ×2 (09:09→22:58)
[2022-06-26 12:04] LABS: Calcium 9.3 mg/dL (8.6-10.3); Potassium 3.7 mEq/L (3.5-5.1)
[2022-06-26] MEDS ORDERED: *HR* Heparin 5,000 UNIT/ML VIAL IVP PRN ×2 (14:13)
[2022-06-26 16:45] LABS: Heparin anti-factor XA UFH < 0.04 IU/mL (0.30-0.70); INR 1.1; Prothrombin Time 12.5 Seconds (9.4-12.1)
[2022-06-26 16:47] LABS: Hematocrit 35.3 % (37.5-50.1); Hemoglobin 10.9 g/dL (12.9-16.9); Mean Corpuscular HGB Conc 30.9 g/dL (31.6-35.5); Mean Corpuscular Hemoglobin 27.7 pg (28.0-33.3); Mean Corpuscular Volume 89.8 fL (83.0-100.0); Platelet Count 162 K/mcL (140-400); Red Blood Count 3.93 M/mcL (4.19-5.50); Red Cell Distribution Width 14.4 % (11.5-14.5); White Blood Count 11.3 K/mcL (4.3-11.1)
[2022-06-26] MEDS: Heparin 25,000UNIT/250ML 1/2NS 25,000 UNIT/250 ML IV.SOLN IVC SCH (16:52)
[2022-06-27] MEDS: Levothyroxine 25 MCG TABLET PO SCH (05:17)
[2022-06-27] MEDS: Insulin LISPRO 300 UNITS/3 ML VIAL SUBQ SCH ×4 (08:07→20:08)
[2022-06-27] MEDS: Insulin DETEMIR 100 UNIT/ML X5UNITS SUBQ SCH ×2 (08:09→20:07)
[2022-06-27] MEDS: hydrALAZINE 25 MG TABLET PO SCH ×3 (08:09→20:06)
[2022-06-27] MEDS: allopurinoL 100 MG TABLET PO SCH (08:10)
[2022-06-27] MEDS: carvediloL 25 MG TABLET PO SCH ×2 (08:10→18:44)
[2022-06-27] MEDS: Cholecalciferol (D-3) 1,000 UNIT (25MCG) TABLET PO SCH (08:10)
[2022-06-27] MEDS: DilTIAZem CD (24hr) 240 MG CAP.ER.24H PO SCH (08:10)
[2022-06-27] MEDS: Furosemide 40 MG TABLET PO SCH ×2 (08:10→20:06)
[2022-06-27] MEDS: Sennosides/Docusate Sodium TABLET PO SCH ×2 (08:10→20:06)
[2022-06-27] MEDS ORDERED: 0.9 % Sodium Chloride 250 ML IVC PRN (08:23)
[2022-06-27] MEDS ORDERED: *HR* Heparin 10,000 UNIT/10 ML VIAL IV PRN (08:23)
[2022-06-27] MEDS: Heparin 25,000UNIT/250ML 1/2NS 25,000 UNIT/250 ML IV.SOLN IVC SCH (08:30)
[2022-06-27 08:57] LABS: Calcium 9.1 mg/dL (8.6-10.3); Magnesium 1.9 mg/dL (1.6-2.6); Phosphorous 5.9 mg/dL (2.7-4.5); Potassium 3.8 mEq/L (3.5-5.1)
[2022-06-27] MEDS ORDERED: Heparin 1,000 UNITS/500 mL 500 ML ONE (12:47)
[2022-06-27] MEDS ORDERED: *HR* FentaNYL (PF) 100 MCG/2 ML VIAL IVP ONE (13:31)
[2022-06-27] MEDS ORDERED: *HR* Midazolam HCl 2 MG/2 ML VIAL IVP ONE (13:31)
[2022-06-27] MEDS ORDERED: 0.9 % Sodium Chloride 500 ML ONE (14:02)
[2022-06-27] MEDS ORDERED: *HR* Heparin 5,000 UNIT/ML VIAL ONE (14:17)
[2022-06-27] MEDS: ceFAZolin 1,000 MG in 0.9 % Sodium Chloride Mini Bag 100 ML IVPB SCH (18:47)
[2022-06-27] MEDS: Acetaminophen 325 MG TABLET PO PRN (20:06)
[2022-06-28 05:39] LABS: Basophils # 0.1 K/mcL (0.0-0.2); Basophils % 0.4 %; Eosinophils # 0.2 K/mcL (0.0-0.6); Eosinophils % 1.6 %; Hemoglobin 11.6 g/dL (12.9-16.9); Immature Granulocytes % 0.7 % (0-4); Lymphocytes # 1.6 K/mcL (0.6-4.6); Lymphocytes % 13.5 %; Mean Corpuscular HGB Conc 31.4 g/dL (31.6-35.5); Mean Corpuscular Hemoglobin 27.5 pg (28.0-33.3); Mean Corpuscular Volume 87.7 fL (83.0-100.0); Mean Platelet Volume 12.2 fL (9.4-12.4); Monocytes # 1.2 K/mcL (0.0-1.3); Monocytes % 10.5 %; Neutrophils # 8.5 K/mcL (1.6-8.9); Platelet Count 173 K/mcL (140-400); Red Blood Count 4.22 M/mcL (4.19-5.50); Red Cell Distribution Width 14.4 % (11.5-14.5); Segmented Neutrophils % 73.3 %; White Blood Count 11.6 K/mcL (4.3-11.1)
[2022-06-28 05:59] LABS: Calcium 9.2 mg/dL (8.6-10.3); Magnesium 1.9 mg/dL (1.6-2.6); Phosphorous 5.3 mg/dL (2.7-4.5); Potassium 3.8 mEq/L (3.5-5.1)
[2022-06-28] MEDS: Levothyroxine 25 MCG TABLET PO SCH (06:32)
[2022-06-28] MEDS: Insulin LISPRO 300 UNITS/3 ML VIAL SUBQ SCH ×4 (08:40→20:37)
[2022-06-28] MEDS: carvediloL 25 MG TABLET PO SCH ×2 (08:45→17:41)
[2022-06-28] MEDS: Cholecalciferol (D-3) 1,000 UNIT (25MCG) TABLET PO SCH (08:45)
[2022-06-28] MEDS: DilTIAZem CD (24hr) 240 MG CAP.ER.24H PO SCH (08:45)
[2022-06-28] MEDS: Furosemide 40 MG TABLET PO SCH ×2 (08:46→20:36)
[2022-06-28] MEDS: Sennosides/Docusate Sodium TABLET PO SCH ×2 (08:46→20:37)
[2022-06-28] MEDS: allopurinoL 100 MG TABLET PO SCH (08:46)
[2022-06-28] MEDS: hydrALAZINE 25 MG TABLET PO SCH ×3 (08:46→20:36)
[2022-06-28] MEDS: Insulin DETEMIR 100 UNIT/ML X5UNITS SUBQ SCH ×2 (08:46→20:37)
[2022-06-28] MEDS: Heparin 25,000UNIT/250ML 1/2NS 25,000 UNIT/250 ML IV.SOLN IVC SCH (16:22)
[2022-06-28] MEDS: Apixaban 5 MG TABLET PO SCH (20:37)
[2022-06-29 02:29] LABS: Hematocrit 34.7 % (37.5-50.1); Hemoglobin 11.1 g/dL (12.9-16.9); Mean Corpuscular Hemoglobin 28.2 pg (28.0-33.3); Mean Corpuscular Volume 88.1 fL (83.0-100.0); Mean Platelet Volume 11.9 fL (9.4-12.4); Platelet Count 186 K/mcL (140-400); Red Blood Count 3.94 M/mcL (4.19-5.50); Red Cell Distribution Width 14.4 % (11.5-14.5); White Blood Count 12.8 K/mcL (4.3-11.1)
[2022-06-29 02:43] LABS: Albumin 3.4 g/dL (3.5-5.7); Calcium 9.3 mg/dL (8.6-10.3); Phosphorous 6.6 mg/dL (2.7-4.5); Potassium 3.8 mEq/L (3.5-5.1)
[2022-06-29] MEDS: Levothyroxine 25 MCG TABLET PO SCH (06:09)
[2022-06-29] MEDS: Heparin 25,000UNIT/250ML 1/2NS 25,000 UNIT/250 ML IV.SOLN IVC SCH (07:58)
[2022-06-29] MEDS: Insulin LISPRO 300 UNITS/3 ML VIAL SUBQ SCH ×4 (07:59→20:33)
[2022-06-29] MEDS: Insulin DETEMIR 100 UNIT/ML X5UNITS SUBQ SCH ×2 (08:00→20:39)
[2022-06-29] MEDS: allopurinoL 100 MG TABLET PO SCH (08:48)
[2022-06-29] MEDS: DilTIAZem CD (24hr) 240 MG CAP.ER.24H PO SCH (08:49)
[2022-06-29] MEDS: Sennosides/Docusate Sodium TABLET PO SCH ×2 (08:49→20:43)
[2022-06-29] MEDS: Furosemide 40 MG TABLET PO SCH ×2 (08:49→17:51)
[2022-06-29] MEDS: Cholecalciferol (D-3) 1,000 UNIT (25MCG) TABLET PO SCH (08:49)
[2022-06-29] MEDS: Apixaban 5 MG TABLET PO SCH ×2 (08:49→20:39)
[2022-06-29] MEDS: carvediloL 25 MG TABLET PO SCH ×2 (08:50→17:51)
[2022-06-29] MEDS: hydrALAZINE 25 MG TABLET PO SCH ×3 (08:51→20:36)
[2022-06-29] MEDS ORDERED: 0.9 % Sodium Chloride 250 ML IVC PRN ×2 (08:59→12:00)
[2022-06-29] MEDS ORDERED: *HR* Heparin 10,000 UNIT/10 ML VIAL IV PRN ×2 (08:59→12:00)
[2022-06-30 04:57] LABS: Hemoglobin 11.4 g/dL (12.9-16.9); Mean Corpuscular HGB Conc 31.7 g/dL (31.6-35.5); Mean Corpuscular Hemoglobin 27.8 pg (28.0-33.3); Mean Corpuscular Volume 87.8 fL (83.0-100.0); Mean Platelet Volume 11.8 fL (9.4-12.4); Platelet Count 195 K/mcL (140-400); Red Cell Distribution Width 14.4 % (11.5-14.5); White Blood Count 11.6 K/mcL (4.3-11.1)
[2022-06-30] MEDS: Levothyroxine 25 MCG TABLET PO SCH (05:06)
[2022-06-30 05:13] LABS: Albumin 3.4 g/dL (3.5-5.7); Calcium 9.3 mg/dL (8.6-10.3); Phosphorous 5.1 mg/dL (2.7-4.5); Potassium 3.8 mEq/L (3.5-5.1)
[2022-06-30] MEDS: carvediloL 25 MG TABLET PO SCH ×2 (07:48→16:31)
[2022-06-30] MEDS: Furosemide 40 MG TABLET PO SCH ×2 (07:48→16:32)
[2022-06-30] MEDS: allopurinoL 100 MG TABLET PO SCH (07:48)
[2022-06-30] MEDS: Sennosides/Docusate Sodium TABLET PO SCH ×2 (07:48→21:30)
[2022-06-30] MEDS: Apixaban 5 MG TABLET PO SCH ×2 (07:48→21:30)
[2022-06-30] MEDS: Cholecalciferol (D-3) 1,000 UNIT (25MCG) TABLET PO SCH (07:48)
[2022-06-30] MEDS: hydrALAZINE 25 MG TABLET PO SCH ×3 (07:49→21:29)
[2022-06-30] MEDS: DilTIAZem CD (24hr) 240 MG CAP.ER.24H PO SCH (07:49)
[2022-06-30] MEDS: Insulin LISPRO 300 UNITS/3 ML VIAL SUBQ SCH ×4 (08:31→21:30)
[2022-06-30] MEDS: Insulin DETEMIR 100 UNIT/ML X5UNITS SUBQ SCH ×2 (08:32→21:41)
[2022-07-01 02:29] LABS: Hematocrit 35.4 % (37.5-50.1); Hemoglobin 11.2 g/dL (12.9-16.9); Mean Corpuscular HGB Conc 31.6 g/dL (31.6-35.5); Mean Corpuscular Hemoglobin 27.8 pg (28.0-33.3); Mean Corpuscular Volume 87.8 fL (83.0-100.0); Mean Platelet Volume 11.8 fL (9.4-12.4); Platelet Count 203 K/mcL (140-400); Red Blood Count 4.03 M/mcL (4.19-5.50); Red Cell Distribution Width 14.3 % (11.5-14.5); White Blood Count 12.6 K/mcL (4.3-11.1)
[2022-07-01 02:49] LABS: Albumin 3.5 g/dL (3.5-5.7); Calcium 9.2 mg/dL (8.6-10.3); Phosphorous 6.5 mg/dL (2.7-4.5); Potassium 3.6 mEq/L (3.5-5.1)
[2022-07-01] MEDS: Levothyroxine 25 MCG TABLET PO SCH (05:56)
[2022-07-01] MEDS: Insulin DETEMIR 100 UNIT/ML X5UNITS SUBQ SCH ×2 (07:49→20:59)
[2022-07-01] MEDS: carvediloL 25 MG TABLET PO SCH ×2 (07:52→16:58)
[2022-07-01] MEDS: Furosemide 40 MG TABLET PO SCH ×2 (07:52→16:58)
[2022-07-01] MEDS: Insulin LISPRO 300 UNITS/3 ML VIAL SUBQ SCH ×4 (07:52→20:59)
[2022-07-01] MEDS: Cholecalciferol (D-3) 1,000 UNIT (25MCG) TABLET PO SCH (08:21)
[2022-07-01] MEDS: DilTIAZem CD (24hr) 240 MG CAP.ER.24H PO SCH (08:21)
[2022-07-01] MEDS: Sennosides/Docusate Sodium TABLET PO SCH ×2 (08:21→20:58)
[2022-07-01] MEDS: hydrALAZINE 25 MG TABLET PO SCH ×3 (08:22→20:59)
[2022-07-01] MEDS: allopurinoL 100 MG TABLET PO SCH (08:22)
[2022-07-01] MEDS: Apixaban 5 MG TABLET PO SCH ×2 (08:22→20:58)
[2022-07-02] MEDS: Levothyroxine 25 MCG TABLET PO SCH (05:46)
[2022-07-02 06:15] LABS: Hematocrit 34.1 % (37.5-50.1); Hemoglobin 10.7 g/dL (12.9-16.9); Mean Corpuscular HGB Conc 31.4 g/dL (31.6-35.5); Mean Corpuscular Hemoglobin 27.7 pg (28.0-33.3); Mean Corpuscular Volume 88.3 fL (83.0-100.0); Mean Platelet Volume 11.7 fL (9.4-12.4); Platelet Count 218 K/mcL (140-400); Red Blood Count 3.86 M/mcL (4.19-5.50); Red Cell Distribution Width 14.4 % (11.5-14.5); White Blood Count 11.9 K/mcL (4.3-11.1)
[2022-07-02 06:26] LABS: Albumin 3.3 g/dL (3.5-5.7); Calcium 9.1 mg/dL (8.6-10.3); Phosphorous 6.1 mg/dL (2.7-4.5); Potassium 3.8 mEq/L (3.5-5.1)
[2022-07-02] MEDS ORDERED: 0.9 % Sodium Chloride 250 ML IVC PRN (07:34)
[2022-07-02] MEDS ORDERED: 0.9 % Sodium Chloride 2,000 ML PRIME SCH (07:45)
[2022-07-02] MEDS: Insulin DETEMIR 100 UNIT/ML X5UNITS SUBQ SCH ×2 (07:55→22:16)
[2022-07-02] MEDS: hydrALAZINE 25 MG TABLET PO SCH ×3 (07:56→22:16)
[2022-07-02] MEDS: Cholecalciferol (D-3) 1,000 UNIT (25MCG) TABLET PO SCH (07:56)
[2022-07-02] MEDS: carvediloL 25 MG TABLET PO SCH ×2 (07:56→18:19)
[2022-07-02] MEDS: Furosemide 40 MG TABLET PO SCH ×2 (07:56→18:19)
[2022-07-02] MEDS: DilTIAZem CD (24hr) 240 MG CAP.ER.24H PO SCH (07:56)
[2022-07-02] MEDS: Sennosides/Docusate Sodium TABLET PO SCH ×2 (07:56→19:32)
[2022-07-02] MEDS: allopurinoL 100 MG TABLET PO SCH (07:56)
[2022-07-02] MEDS: Insulin LISPRO 300 UNITS/3 ML VIAL SUBQ SCH ×4 (07:57→19:29)
[2022-07-02] MEDS: Apixaban 5 MG TABLET PO SCH ×2 (07:57→19:33)
[2022-07-02] MEDS ORDERED: *HR* Heparin 10,000 UNIT/10 ML VIAL IV PRN (17:41)
[2022-07-02] MEDS: Acetaminophen 325 MG TABLET PO PRN (22:10)
[2022-07-03 03:43] LABS: Albumin 3.5 g/dL (3.5-5.7); Calcium 9.3 mg/dL (8.6-10.3); Phosphorous 3.8 mg/dL (2.7-4.5); Potassium 3.8 mEq/L (3.5-5.1)
[2022-07-03] MEDS: Levothyroxine 25 MCG TABLET PO SCH (06:07)
[2022-07-03] MEDS: Sennosides/Docusate Sodium TABLET PO SCH ×2 (09:15→21:00)
[2022-07-03] MEDS: carvediloL 25 MG TABLET PO SCH ×2 (09:15→17:17)
[2022-07-03] MEDS: Furosemide 40 MG TABLET PO SCH ×2 (09:15→17:17)
[2022-07-03] MEDS: Cholecalciferol (D-3) 1,000 UNIT (25MCG) TABLET PO SCH (09:15)
[2022-07-03] MEDS: Apixaban 5 MG TABLET PO SCH ×2 (09:15→20:34)
[2022-07-03] MEDS: hydrALAZINE 25 MG TABLET PO SCH ×3 (09:15→20:38)
[2022-07-03] MEDS: allopurinoL 100 MG TABLET PO SCH (09:15)
[2022-07-03] MEDS: DilTIAZem CD (24hr) 240 MG CAP.ER.24H PO SCH (09:16)
[2022-07-03] MEDS: Insulin DETEMIR 100 UNIT/ML X5UNITS SUBQ SCH ×2 (09:20→20:39)
[2022-07-03] MEDS: Insulin LISPRO 300 UNITS/3 ML VIAL SUBQ SCH ×4 (09:20→20:39)
[2022-07-03] MEDS: Artificial Tears SOLN 15 ML BOTTLE BOTH EYES SCH ×3 (12:35→20:36)
[2022-07-04 02:27] LABS: Basophils # 0.1 K/mcL (0.0-0.2); Basophils % 0.8 %; Eosinophils # 0.3 K/mcL (0.0-0.6); Eosinophils % 2.5 %; Hematocrit 35.1 % (37.5-50.1); Immature Granulocytes % 2.6 % (0-4); Lymphocytes # 2.5 K/mcL (0.6-4.6); Lymphocytes % 21.2 %; Mean Corpuscular HGB Conc 31.3 g/dL (31.6-35.5); Mean Corpuscular Hemoglobin 27.6 pg (28.0-33.3); Mean Corpuscular Volume 88.2 fL (83.0-100.0); Mean Platelet Volume 11.8 fL (9.4-12.4); Monocytes # 1.2 K/mcL (0.0-1.3); Monocytes % 9.9 %; Neutrophils # 7.5 K/mcL (1.6-8.9); Platelet Count 229 K/mcL (140-400); Red Blood Count 3.98 M/mcL (4.19-5.50); Red Cell Distribution Width 14.3 % (11.5-14.5)
[2022-07-04 02:48] LABS: Calcium 9.1 mg/dL (8.6-10.3); Potassium 4.3 mEq/L (3.5-5.1)
[2022-07-04] MEDS: Levothyroxine 25 MCG TABLET PO SCH (05:42)
[2022-07-04] MEDS ORDERED: 0.9 % Sodium Chloride 250 ML IVC PRN (07:43)
[2022-07-04] MEDS: allopurinoL 100 MG TABLET PO SCH (08:03)
[2022-07-04] MEDS: carvediloL 25 MG TABLET PO SCH ×2 (08:03→18:12)
[2022-07-04] MEDS: DilTIAZem CD (24hr) 240 MG CAP.ER.24H PO SCH (08:03)
[2022-07-04] MEDS: Cholecalciferol (D-3) 1,000 UNIT (25MCG) TABLET PO SCH (08:03)
[2022-07-04] MEDS: Furosemide 40 MG TABLET PO SCH ×2 (08:03→18:13)
[2022-07-04] MEDS: Insulin DETEMIR 100 UNIT/ML X5UNITS SUBQ SCH ×2 (08:04→20:30)
[2022-07-04] MEDS: Apixaban 5 MG TABLET PO SCH ×2 (08:04→20:27)
[2022-07-04] MEDS: Sennosides/Docusate Sodium TABLET PO SCH ×2 (08:04→20:27)
[2022-07-04] MEDS: hydrALAZINE 25 MG TABLET PO SCH ×3 (08:04→20:26)
[2022-07-04] MEDS: Insulin LISPRO 300 UNITS/3 ML VIAL SUBQ SCH ×4 (08:05→20:28)
[2022-07-04] MEDS: Artificial Tears SOLN 15 ML BOTTLE BOTH EYES SCH ×3 (08:06→18:12)
[2022-07-04] MEDS: Acetaminophen 325 MG TABLET PO PRN (22:07)
[2022-07-05] MEDS: Levothyroxine 25 MCG TABLET PO SCH (05:15)
[2022-07-05] MEDS: Artificial Tears SOLN 15 ML BOTTLE BOTH EYES SCH ×5 (05:15→20:22)
[2022-07-05] MEDS: Insulin LISPRO 300 UNITS/3 ML VIAL SUBQ SCH ×4 (07:38→20:23)
[2022-07-05] MEDS: Insulin DETEMIR 100 UNIT/ML X5UNITS SUBQ SCH ×2 (07:39→20:19)
[2022-07-05] MEDS: Apixaban 5 MG TABLET PO SCH ×2 (07:40→20:21)
[2022-07-05] MEDS: Cholecalciferol (D-3) 1,000 UNIT (25MCG) TABLET PO SCH (07:40)
[2022-07-05] MEDS: allopurinoL 100 MG TABLET PO SCH (07:41)
[2022-07-05] MEDS: Sennosides/Docusate Sodium TABLET PO SCH ×2 (07:42→20:21)
[2022-07-05] MEDS: hydrALAZINE 25 MG TABLET PO SCH ×3 (08:48→20:23)
[2022-07-05] MEDS: carvediloL 25 MG TABLET PO SCH ×2 (08:48→16:27)
[2022-07-05] MEDS: Furosemide 40 MG TABLET PO SCH ×2 (08:48→16:27)
[2022-07-05] MEDS: DilTIAZem CD (24hr) 240 MG CAP.ER.24H PO SCH (08:48)
[2022-07-06] MEDS: Levothyroxine 25 MCG TABLET PO SCH (05:26)
[2022-07-06] MEDS ORDERED: 0.9 % Sodium Chloride 250 ML IVC PRN (07:34)
[2022-07-06] MEDS ORDERED: *HR* Heparin 10,000 UNIT/10 ML VIAL IV PRN (08:08)
[2022-07-06] MEDS: Apixaban 5 MG TABLET PO SCH ×2 (08:19→20:49)
[2022-07-06] MEDS: hydrALAZINE 25 MG TABLET PO SCH ×3 (08:19→20:50)
[2022-07-06] MEDS: carvediloL 25 MG TABLET PO SCH ×2 (08:19→16:49)
[2022-07-06] MEDS: allopurinoL 100 MG TABLET PO SCH (08:19)
[2022-07-06] MEDS: Furosemide 40 MG TABLET PO SCH ×2 (08:19→16:49)
[2022-07-06] MEDS: Insulin DETEMIR 100 UNIT/ML X5UNITS SUBQ SCH ×2 (08:20→20:50)
[2022-07-06] MEDS: Cholecalciferol (D-3) 1,000 UNIT (25MCG) TABLET PO SCH (08:20)
[2022-07-06] MEDS: Sennosides/Docusate Sodium TABLET PO SCH ×2 (08:20→20:50)
[2022-07-06] MEDS: DilTIAZem CD (24hr) 240 MG CAP.ER.24H PO SCH (08:20)
[2022-07-06] MEDS: Insulin LISPRO 300 UNITS/3 ML VIAL SUBQ SCH ×4 (08:20→20:50)
[2022-07-06] MEDS: Artificial Tears SOLN 15 ML BOTTLE BOTH EYES SCH ×4 (08:21→20:51)
[2022-07-06 09:16] LABS: Basophils # 0.1 K/mcL (0.0-0.2); Basophils % 0.8 %; Eosinophils # 0.2 K/mcL (0.0-0.6); Hematocrit 38.6 % (37.5-50.1); Hemoglobin 12.3 g/dL (12.9-16.9); Lymphocytes # 1.9 K/mcL (0.6-4.6); Lymphocytes % 16.2 %; Mean Corpuscular HGB Conc 31.9 g/dL (31.6-35.5); Mean Corpuscular Hemoglobin 28.1 pg (28.0-33.3); Mean Corpuscular Volume 88.1 fL (83.0-100.0); Monocytes # 0.8 K/mcL (0.0-1.3); Monocytes % 7.2 %; Neutrophils # 8.6 K/mcL (1.6-8.9); Platelet Count 231 K/mcL (140-400); Red Blood Count 4.38 M/mcL (4.19-5.50); Red Cell Distribution Width 14.3 % (11.5-14.5); Segmented Neutrophils % 72.8 %; White Blood Count 11.7 K/mcL (4.3-11.1)
[2022-07-06 09:38] LABS: Calcium 9.7 mg/dL (8.6-10.3); Potassium 4.6 mEq/L (3.5-5.1)
[2022-07-06 15:16] VITALS: O2SAT 98
[2022-07-06 20:16] VITALS: BP 133/80; PULSE 67; TEMP 98.5
== END 2022-07-06 22:37 | DRG 291 ==
LOC: 2NNU 16:17 → EMEROOARM 16:17 → SUATTDRO 06-16 01:33 → 2NNU 06-16 02:57 → 2NENU 06-16 20:06 → 3BNU 06-19 05:37
PROVIDERS: ADMIT Student in an Organized Health Care Education/Training Program; ATTEND Internal Medicine
PROC: IRPERMA (2022-06-27 12:00)